=== PATIENT | female | born 1990 | race African-American/Black ===

== ENCOUNTER 2018-01-01 08:59 | Inpatient (IN) | payer OTHER ==
[~2018-01-01] VITALS: Ht 160 cm; Wt 95.7 kg
[2018-01-01] MEDS ORDERED: PLAQUENIL200 M1 PO (09:37)
--- NOTE | 2018-01-01 09:58 | History & Physical ---
General Information and HPI MD Statement: I have seen and personally examined YONIS VILLEDA I and documented this H&P. The patient is a 27 year old female at [41] weeks and [0] days gestation who presented with a chief complaint of [postdates ]. History of Present Illness: 27yo lmp 03/20/17 edc 12/25/17 at 41 weeks for IOL. Medical history significant for Sjorgens syndrome, raynaud's and has SSB antibodies; weekly nst reassuring. 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 EENTM: Reports: no symptoms. Cardiovascular: Reports: no symptoms. Respiratory: Reports: no symptoms. GI: Reports: no symptoms. Genitourinary: Reports: no symptoms. Musculoskeletal: Reports: no symptoms. Skin: Reports: no symptoms. Neurological/Psychological: Reports: no symptoms, ataxia. Hematologic/Endocrine: Reports: no symptoms. Immunologic/Allergic: Reports: no symptoms. All Other Systems: Reviewed and Negative Exam & Diagnostic Data Obstetric Exam Wgt Gained During : 30 Pelvimetry: gynecoid Dilation (cm): 2 Effacement (%): 80 Station: -2 Membranes: intact Fluid: unknown Fundal Height (cm): 41 Multiple Gestation? No Contractions: occ #1 - FHR Baseline: 140 Category: 1 Estimated Weight: 7 Presentation: cephalic Patient for Induction? Yes Dalton Score Dalton Score Response Value Cervix Position: posterior 0 Cervix Consistency: soft 2 Cervix Effacement: 60-70% 2 Cervix Dilation: 1-2 cm 1 Cervix Station: -2 1 Total 6 Physical Exam: HEENT: NCAT Chest: CTA CV: nl S1S2 Abd: gravid, cephalic, 7 CX: 2-3/80/-2 Ext: no c/c/e Neuro: nonfocal Labs Blood Type & Rh: B pos Antibody Screen: neg Hct/Hgb & Platelets #1: Hct/Hgb & Platelets #2: Rubella: imm VDRL #1: nr VDRL #2: nr HbsAg: neg HIV #1: neg HIV #2 neg 1 Hr P Group B Strep: neg Initial Ultrasound: wnl Anatomy Ultrasound: wnl Genetic Testing: neg Assessment/Plan Assessment/Plan: 41 week Pitocin IOL As Ranked By This Provider Problem List: 1. Post-dates Core Measures Venous Thromboembolism VTE Risk Factors / No Mechanical VTE Prophylaxis d/t Early Ambulation No VTE Pharm Prophylaxis d/t Bleeding (Active)
[2018-01-01 10:05] LABS: ABSOLUTE BASOPHIL COUNT 0 /CUMM (0.0-0.2); ABSOLUTE EOSINOPHIL COUNT 0.1 /CUMM (0.0-0.7); ABSOLUTE GRANULOCYTE CT 9.4 /CUMM (1.4-6.5); ABSOLUTE LYMPH COUNT 1.4 /CUMM (1.2-3.4); ABSOLUTE MONOCYTE COUNT 0.7 /CUMM (0.10-0.60); BASOPHIL % 0.2 % (0.0-2.0); EOSINOPHIL % 0.5 % (0-5); HEMATOCRIT 34.8 % (37-47); MEAN CORPUSCULAR HGB 29.7 PG (27.0-31.0); MEAN CORPUSCULAR VOLUME 87.3 FL (81.0-99.0); MEAN PLATELET VOLUME 8.7 FL (7.4-10.4); PLATELET COUNT 205 /CUMM (130-400); RED BLOOD CELL CT 3.98 /CUMM (4.20-5.40); WHITE BLOOD CELL COUNT 11.7 /CUMM (4.8-10.8)
--- NOTE | 2018-01-01 10:19 | PN- Obstetrical ---
Subjective Subjective: no c/o Review of Systems: neg Objective Last 24 Hrs of Vital Signs/I&O vss Physical Exam: cx: 3/80/-2 NST cat 1 Obstetric Exam Dilation (cm): 2 Effacement (%): 80 Station: -2 Membranes: AROM Fluid: light meconium Multiple Gestation? No Contractions: occ #1 - FHR Baseline: 140 Category: 1 Estimated Weight: 7 Presentation: cephalic Assessment/Plan Assessment/Plan 41 week pred Pit IOL AROM lt mec Problem List: 1. Post-dates
--- NOTE | 2018-01-01 12:12 | PN- Obstetrical ---
Subjective Subjective: no c/o Review of Systems: doing well Objective Last 24 Hrs of Vital Signs/I&O vss afebgrile Physical Exam: Cx; 2 80/-2 Extr nt Obstetric Exam Dilation (cm): 2 Effacement (%): 80 Station: -2 Membranes: AROM Fluid: light meconium Multiple Gestation? No Contractions: q2-5 #1 - FHR Baseline: 140 Category: 1 Estimated Weight: 7 Presentation: cephalic Assessment/Plan Assessment/Plan postdates IOL AROM IUPC placed
--- NOTE | 2018-01-01 17:31 | PN- Obstetrical ---
Subjective Subjective: PITOCIN 18 MILLIUNITS Objective Last 24 Hrs of Vital Signs/I&O As per chartAs per chart Physical Exam: Well-built black female in labor Abdomen soft Obstetric Exam Dilation (cm): 4 Effacement (%): 90 Station: 1 Membranes: AROM Fluid: light meconium Multiple Gestation? No Contractions: Every 3 minutesEvery 3 minutes #1 - FHR Baseline: 140 Category: 1 Estimated Weight: 7 Presentation: cephalic Assessment/Plan Assessment/Plan Assessment 41 weeks meconium induction Plan IUPC placed again again IUPC placed Plan inductionAssessment 41 weeks meconium
--- NOTE | 2018-01-01 21:26 | PN- Obstetrical ---
Subjective Subjective: DECLERATIONS Objective Last 24 Hrs of Vital Signs/I&O PER CHART Physical Exam: PE THIN BF IN NAD ABD SOFT EXT +1 EDMA Obstetric Exam Dilation (cm): 4 Effacement (%): 90 Station: 1 Membranes: AROM Fluid: light meconium Multiple Gestation? No Contractions: NONE #1 - FHR Baseline: 140 Category: 1 Estimated Weight: 7 Presentation: cephalic Assessment/Plan Assessment/Plan ASSESS 41 WEEK DECELERATIONS WITH MECONIUM WITH PITOCIN DISCONTIUED AND NO CHANGE IN CERVIX PLAN PITOCN OFF C/S FOR DELIVERY
--- NOTE | 2018-01-01 22:50 | Operative Report ---
Operative/Inv Procedure Report Surgery Date: 01/01/18 Name of Procedure: Primary section Pre-Operative Diagnosis: Nonreassuring heart rate testing Post-Operative Diagnosis: Same, nuchal cord 2 Estimated Blood Loss: 650 mL Surgeon/Custom Stock Maker: Lilly Madera MD,Og Saenz M.D. Anesthesia: epidural Operative/Procedure Note Note: The patient was taken to the operating room and placed on the OR table in the dorsal supine position. Her epidural anesthesia was reinforced. Venodyne boots were placed and was activated. Rivera catheter was draining clear yellow urine. The abdomen was then prepped and draped in the usual sterile fashion and the skin was tested. A Pfannenstiel skin incision was made with the scalpel and this was taken down to the layer of the fascia. The fascia was nicked in the midline and extended bilaterally. The underlying rectus muscles which were bluntly dissected away and in the midline. The peritoneal cavity was entered high vital bluntly and extended bilaterally. A Jefry bladder blade was inserted to protect the bladder from the operative field. A bladder flap was created using Metzenbaum scissors and this was placed behind the Dallas blade. A low transverse uterine incision was made with the scalpel and extended bilaterally. A liveborn male infant was delivered atraumatically and handed off to the waiting pediatricians with 2 nuchal cords noted at delivery. Placenta was then manually removed intact with three-vessel cord. The uterus was exteriorized and wiped clean with a wet lap sponge. The uterine incision was then closed in 2 layers of 0 Polysorb the second imbricating the first. 2 [id number] sutures were placed in the lower uterine segment which had ballooned out. The abdomen and pelvis were copiously irrigated and the uterus was placed back into the abdominal cavity and the suture line was once Visualized and noted to be hemostatic. Rectus muscles were reapproximated with one mattress suture of 0 Polysorb. Fascia was closed with 0 Polysorb in a running nonlocking fashion. Subcutaneous tissues were irrigated and coagulated were needed. The skin was closed using hal. A dry sterile dressing was applied to the wound patient was sent to recovery in good condition. All needle, sponge, and inspected counts were correct at the end of the procedure 2.
--- NOTE | 2018-01-01 22:51 | Labor & Delivery Summary ---
Delivery Summary Section: Section: primary Indication: nonreassuring fhr Anesthesia: epidural Placenta: Placenta: manual, nuchal cord (x_) Anesthesia: epidural Baby's Weight: 8/7 Apgars - 1 Min: 9 Apgars - 5 Min: 9
[2018-01-02 03:17] VITALS: BP 113/59
[2018-01-02 08:09] LABS: ABSOLUTE BASOPHIL COUNT 0 /CUMM (0.0-0.2); ABSOLUTE EOSINOPHIL COUNT 0 /CUMM (0.0-0.7); ABSOLUTE GRANULOCYTE CT 16.1 /CUMM (1.4-6.5); ABSOLUTE LYMPH COUNT 1.5 /CUMM (1.2-3.4); ABSOLUTE MONOCYTE COUNT 1.2 /CUMM (0.10-0.60); BASOPHIL % 0 % (0.0-2.0); EOSINOPHIL % 0.1 % (0-5); HEMATOCRIT 35.3 % (37-47); MEAN CORPUSCULAR HGB 29.5 PG (27.0-31.0); MEAN CORPUSCULAR HGB CONC 33.4 G/DL (33.0-37.0); MEAN CORPUSCULAR VOLUME 88.1 FL (81.0-99.0); MEAN PLATELET VOLUME 9.1 FL (7.4-10.4); PLATELET COUNT 204 /CUMM (130-400); RBC DISTRIBUTION WIDTH 13.8 % (11.5-14.5); RED BLOOD CELL CT 4.01 /CUMM (4.20-5.40)
[2018-01-02 08:49] LABS: GRANULOCYTE % 85.4 % (42.2-75.2); WHITE BLOOD CELL COUNT 18.9 /CUMM (4.8-10.8)
[2018-01-02] MEDS ORDERED: IBUPROFEN800 M1 PO (16:58)
[2018-01-02] MEDS ORDERED: DOCUSATE SODIU100 M3 PO (16:58)
[2018-01-02] MEDS ORDERED: PERCOCET 5-3251 EACH PO (16:58)
--- NOTE | 2018-01-02 17:05 | PN- Post Delivery/GYN ---
Subjective Subjective: feeling well; pain well controlled Review of Systems: pos flatus Objective Last 24 Hrs of Vital Signs/I&O Vital Signs Date Time Temp Pulse Resp B/P B/P Pulse O2 O2 Flow FiO2 Mean Ox Delivery Rate 01/02 0317 113/59 Intake & Output 01/02 1600 01/02 0800 01/02 0000 Intake Total Output Total Balance Patient 211 lb Weight Physical Exam: ff incison c/d/i ext nt Assessment/Plan Assessment/Plan s/p c/s pod1 stable d/c rich advance diet increase acitivity circ Problem List: 1. Post-dates
--- NOTE | 2018-01-03 11:58 | PN- Post Delivery/GYN ---
Subjective Subjective: NO COMPLAINTS Objective Last 24 Hrs of Vital Signs/I&O PER CHART Physical Exam: PE THIN BF INNAD ABD SOFT NT ICISION CDI EXT +1EDEMA -HOMANS Assessment/Plan Assessment/Plan ASSESS S/PC/S CONT PPC
== END 2018-01-03 23:00 | DRG 766 ==
LOC: GNO 08:59
PROVIDERS: Obstetrics & Gynecology; Specialist
PROC: 10D00Z1 Extraction of Products of Conception, Low, Open Approach (ICD-10-PCS; principal; 2018-01-01)
PROC: 10907ZC Drainage of Amniotic Fluid, Therapeutic from Products of Conception, Via Natural or Artificial Opening (ICD-10-PCS; 2018-01-01)
PROC: 3E033VJ Introduction of Other Hormone into Peripheral Vein, Percutaneous Approach (ICD-10-PCS; 2018-01-01)
PROC: 10H07YZ Insertion of Other Device into Products of Conception, Via Natural or Artificial Opening (ICD-10-PCS; 2018-01-01)
PROC: 4A1H74Z Monitoring of Products of Conception, Cardiac Electrical Activity, Via Natural or Artificial Opening (ICD-10-PCS; 2018-01-01)
DX: O48.0 Post-term pregnancy (principal); Z37.0 Single live birth; Z3A.41 41 weeks gestation of pregnancy; O76 Abnormality in fetal heart rate and rhythm complicating labor and delivery; M35.00 Sjogren syndrome, unspecified; O69.81X0 Labor and delivery complicated by cord around neck, without compression, not applicable or unspecified; I73.00 Raynaud's syndrome without gangrene; O99.89 Other specified diseases and conditions complicating pregnancy, childbirth and the puerperium; Z88.0 Allergy status to penicillin
CPT/HCPCS: GNOP; GNOS; 36415; 80307; 81001; 87086; J0131; J0690; J1580; J1650; J2210; J7120